=== PATIENT | male | born 1980 | race Caucasian/White ===

== ENCOUNTER 2018-09-07 14:38 | Outpatient (CLI) | payer OTHER ==
--- NOTE | 2018-09-07 15:01 | XRAY Report ---
Reason: CHEST PAIN Procedure Date: 09/07/2018 Accession Number: [id number] / [id number] Procedure: [facility]CP - Chest 2 View X-Ray CPT Code: 59184 FULL RESULT: EXAM: CHEST RADIOGRAPHY EXAM DATE: 09/07/2018 02:48 PM. CLINICAL HISTORY: CHEST PAIN. COMPARISON: None. TECHNIQUE: 2 views. FINDINGS: Lungs/Pleura: No focal opacities evident. No pleural effusion. No pneumothorax. Normal volumes. Mediastinum: Heart and mediastinal contours are unremarkable. Other: None. IMPRESSION: Normal 2-view chest radiography. RAD[facility]
== END 2018-09-07 14:39 | disposition home or self-care (01) ==
LOC: DI.WCP 14:38
PROVIDERS: ATTEND Family Medicine
DX: R07.9 Chest pain, unspecified (principal)
CPT/HCPCS: 36415; 71046; 80050; 80061; 82553; 84484; 85379

== ENCOUNTER 2018-10-04 13:12 | Outpatient (CLI) | payer OTHER | END 2018-10-04 13:13 | disposition home or self-care (01) | LOC: DI 13:12 | PROVIDERS: ATTEND Physician Assistant | DX: R07.9 Chest pain, unspecified (principal) | CPT/HCPCS: 93306 ==

== ENCOUNTER 2018-10-27 07:32 | Outpatient (CLI) | payer OTHER ==
--- NOTE | 2018-10-27 09:29 | CARDIAC PROCEDURE NOTE ---
DATE OF SERVICE: 10/27/2018 Physician: Meena Sanford MD, [facility] INDICATIONS: Chest pain. CARDIAC RISK FACTORS: Male gender. PROCEDURE PERFORMED: After signing informed consent, the patient underwent a cardiac treadmill test. RESTING HEART RATE: 65. Peak heart rate: 176 (95% predicted maximum heart rate for age). RESTING BLOOD PRESSURE: 142/78. Peak blood pressure: 190/60. The patient exercised for 12 minutes on a Agustin protocol treadmill stress test. He achieved a peak heart rate of 176 (95% PMHR), and 13.5 METS. The patient had no chest pain. He had mild shortness of breath at final stage. BASELINE EKG: Normal sinus rhythm, RSR' in V1 and early R/S transition in V1 and V2. EKG AT [facility]: No new ST or T-wave changes to suggest cardiac ischemia. SUMMARY: 1. Abnormal baseline EKG. 2. No ischemic EKG changes at 95% PMHR and 13.5 METS on a Agustin protocol treadmill stress test. 3. Very good exercise tolerance. TD: 10/27/2018 09:22 MIRIAM
== END 2018-10-27 07:33 | disposition home or self-care (01) ==
LOC: DI 07:32
PROVIDERS: ATTEND Physician Assistant
DX: R07.9 Chest pain, unspecified (principal); R94.31 Abnormal electrocardiogram [ECG] [EKG]
CPT/HCPCS: 93017

== ENCOUNTER 2018-12-31 17:41 | Outpatient (CLI) | payer OTHER ==
--- NOTE | 2019-01-02 00:07 | Ultrasound Report ---
Reason: TESTICULAR PAIN, LEFT Procedure Date: 12/31/2018 Accession Number: [id number] / [id number] Procedure: US - Testicle CPT Code: FULL RESULT: EXAM: SCROTAL ULTRASOUND EXAM DATE: 12/31/2018 06:30 PM. CLINICAL HISTORY: TEsticular pain, left. COMPARISON: None. TECHNIQUE: Real-time scanning was performed with static images obtained. Color-flow images were utilized. FINDINGS: Right: Testis: 5.3 x 2.6 x 3.7 cm. Normal size and echotexture. No mass, calcification, or abnormal blood flow. 0.7 cm appendix testis is noted. Epididymis: 0.8 x 0.8 x 0.8 cm. Normal size and echotexture. No mass or abnormal blood flow. Hydrocele: Small right hydrocele. Varicocele: None. Left: Testis: 5.1 x 2.5 x 3.7 cm. Normal size and echotexture. No mass, calcification, or abnormal blood flow. 0.7 x 0.5 cm appendix testis is noted. Epididymis: 1.1 x 0.9 x 0.9 cm. Normal size and echotexture. No mass or abnormal blood flow. Hydrocele: Small left hydrocele. 0.5 x 0.2 cm calcification is noted and are abutting the left epididymal head. Given the appearance, this is probably extratesticular and within the hydrocele and is most likely a scrotal valorie. Varicocele: Present measuring up to 4.2 mm. IMPRESSION: 1. No testicular mass or evidence of torsion. 2. Bilateral appendix testes. Normal bilateral epididymides. 3. Small bilateral hydroceles. Incidental left varicocele measuring up to 4.2 mm. 4. 0.5 cm calcific structure in the left scrotum probably represents a scrotal valorie. RAD[facility]
== END 2018-12-31 17:42 | disposition home or self-care (01) ==
LOC: DI 17:41
PROVIDERS: ATTEND Family Medicine
DX: N43.3 Hydrocele, unspecified (principal)
CPT/HCPCS: 76870

== ENCOUNTER 2019-07-27 14:45 | Outpatient (CLI) | payer OTHER ==
[2019-07-27 19:44] LABS: H. PYLORIS ANTIGEN STL NEGATIVE (Negative)
== END 2019-07-27 23:59 | disposition home or self-care (01) ==
LOC: LAB.R 14:45
PROVIDERS: ATTEND Family Medicine
DX: K92.1 Melena (principal)
CPT/HCPCS: 81599; 82274; 83630; 87045; 87046; 87177; 87209; 87329; 87338; 87493